=== PATIENT | female | born 1970 | race Caucasian/White ===

== ENCOUNTER 2018-07-01 18:08 | Emergency (ER) | payer MEDICAID ==
[~2018-07-01] VITALS: Ht 172.7 cm; Wt 75.0 kg
[2018-07-01 18:28] VITALS: BP 109/66
[2018-07-01] MEDS ORDERED: LORA1TAB PO (19:23)
== END 2018-07-01 20:00 | disposition home or self-care (01) ==
LOC: ER 18:08
DX: F15.90 Other stimulant use, unspecified, uncomplicated (principal); F17.210 Nicotine dependence, cigarettes, uncomplicated; Z88.2 Allergy status to sulfonamides; Z79.899 Other long term (current) drug therapy
CPT/HCPCS: 99283